=== PATIENT | female | born 1945 | race Caucasian/White ===

== ENCOUNTER 2018-02-11 14:46 | Emergency (ER) | payer MEDICARE, MEDICAID ==
[2018-02-11 15:04] VITALS: BP 145/74
--- NOTE | 2018-02-11 15:20 | UC ---
Skin Complaint HPI - HPI Summary HPI Summary: Found a tick on the right lower side today. Brought the tick in. Didn't feel it yesterday. - History of Current Complaint Chief Complaint: UCSkin Time Seen by Provider: 02/11/18 15:07 Stated Complaint: TICK BITE Hx Obtained From: Patient Hx Last Menstrual Period: post, total hysterectomy Onset/Duration: Sudden Onset, Lasting Days - 1 Timing: Constant Onset Severity: Mild Current Severity: Mild Pain Intensity: 3 Location: Discrete - Right lower side. Character: Swelling, Pain, Redness Aggravating Factor(s): Touch Alleviating Factor(s): Nothing Associated Signs & Symptoms: Positive: Tenderness. Negative: Diaphoresis, Weakness, Fever, Chills, Cough, Wheezing, Chest Pain, Abdominal Pain, Lightheadedness, Syncope, Drainage, Bruising Related History: Insect Bite/Sting - Tick bite by engorged tick - Allergy/Home Medications Allergies/Adverse Reactions: Allergies Allergy/AdvReac Type Severity Reaction Status Date / Time No Known Allergies Allergy Verified 02/11/18 15:05 Review of Systems Skin: Rash - tick bite Is Patient Immunocompromised?: No All Other Systems Reviewed And Are Negative: Yes PMH/Surg Hx/FS Hx/Imm Hx Previously Healthy: No Cardiovascular History: Hypertension Cancer History: Breast Cancer - Surgical History Surgical History: Yes Surgery Procedure, Year, and Place: lt/rt breast lumpectomies;. APPENDECTOMY. HYSTERECTOMY - Family History Known Family History: Positive: Cardiac Disease, Diabetes - Social History Occupation: Retired Lives: With Family - usp boyfriend Alcohol Use: None Substance Use Type: None Smoking Status (MU): Never Smoked Tobacco Physical Exam Triage Information Reviewed: Yes Appearance: Well-Appearing, No Pain Distress, Well-Nourished Vital Signs: Initial Vital Signs Temp 98.4 F 02/11/18 14:59 Pulse 78 02/11/18 14:59 Resp 16 02/11/18 14:59 BP 145/74 02/11/18 14:59 Pulse Ox 97 02/11/18 14:59 Vital Signs Reviewed: Yes Eyes: Positive: Conjunctiva Clear Neck exam: Normal Respiratory Exam: Normal Cardiovascular Exam: Normal Musculoskeletal Exam: Normal Neurological Exam: Normal Psychological Exam: Normal Skin: Positive: Other - tick bite right lower side Course/Dx - Differential Diagnoses - Skin Complaint Differential Diagnoses: Contact Dermatitis, Tick Born Illness - Diagnoses Provider Diagnoses: Tick bite by engorged tick Discharge - Sign-Out/Discharge Documenting (check all that apply): Patient Departure All imaging exams completed and their final reports reviewed: No Studies - Discharge Plan Condition: Stable Disposition: HOME Prescriptions: DOXYcycline CAP(*) [DOXYcycline 100MG CAP(*)] 200 mg PO ONCE #2 cap Patient Education Materials: Tick Bite (ED), Doxycycline (By mouth) Referrals: Kyle Srinivasan MD [Primary Care Provider] - - Billing Disposition and Condition Condition: STABLE Disposition: Home
== END 2018-02-11 15:47 | disposition home or self-care (01) ==
LOC: UCEAST 14:46
DX: S30.861A Insect bite (nonvenomous) of abdominal wall, initial encounter (principal); W57.XXXA Bitten or stung by nonvenomous insect and other nonvenomous arthropods, initial encounter; Y92.9 Unspecified place or not applicable
CPT/HCPCS: 99212; G0463

== ENCOUNTER 2018-10-18 12:32 | Emergency (ER) | payer MEDICARE, MEDICAID ==
[2018-10-18 12:54] VITALS: BP 131/73
--- NOTE | 2018-10-18 13:30 | UC ---
Shortness of Breath HPI - HPI Summary HPI Summary: The last few nights she has had difficulty when she is lying down to sleep. She complains of dry mouth and a discomfort in her throat which makes her breathe funny. She is fine if she gets up but when she tries to lie down it reoccurs - History of Current Complaint Chief Complaint: UCRespiratory Stated Complaint: COUGH WHEEZING FEVER Time Seen by Provider: 10/18/18 13:05 Hx Obtained From: Patient Hx Last Menstrual Period: post, total hysterectomy Onset/Duration: Gradual Onset Timing: Intermittent Episodes Lasting: Current Severity: None Dyspnea At: Rest Aggravating Factors: Recumbent Position Alleviating Factors: Upright Position Associated Signs & Symptoms: Positive: Other - Allergy/Home Medications Allergies/Adverse Reactions: Allergies Allergy/AdvReac Type Severity Reaction Status Date / Time No Known Allergies Allergy Verified 10/18/18 12:55 Home Medications: Home Medications Vitamin B Complex [Super B-50 Complex] 1 tab PO DAILY 10/18/18 [History Confirmed 10/18/18] PMH/Surg Hx/FS Hx/Imm Hx Other Respiratory History: she has metastatic cancer to her lungs. Cancer History: Lung Cancer, Breast Cancer - ? - Surgical History Surgical History: Yes Surgery Procedure, Year, and Place: lt/rt breast lumpectomies;. APPENDECTOMY. HYSTERECTOMY - Family History Known Family History: Positive: Cardiac Disease, Diabetes - Social History Alcohol Use: None Substance Use Type: None Smoking Status (MU): Never Smoked Tobacco Review of Systems All Other Systems Reviewed And Are Negative: Yes Constitutional: Positive: Negative Skin: Positive: Negative ENT: Positive: Negative Respiratory: Positive: Shortness Of Breath Cardiovascular: Positive: Negative Psychological: Positive: Anxious Physical Exam - Summary Physical Exam Summary: She is nontoxic in appearance with stable vital signs. Triage Information Reviewed: Yes Appearance: Well-Appearing Vital Signs: Initial Vital Signs Temp 98.8 F 10/18/18 12:39 Pulse 94 10/18/18 12:39 Resp 18 10/18/18 12:39 BP 131/73 10/18/18 12:39 Pulse Ox 95 10/18/18 12:39 Vital Signs Reviewed: Yes Eyes: Positive: Conjunctiva Clear ENT Exam: Normal Neck: Positive: Supple Respiratory Exam: Normal Cardiovascular Exam: Normal Musculoskeletal: Positive: No Edema Neurological Exam: Normal Diagnostics - Radiology CXR Radiology Interpretation Completed By: Radiologist - Mild CHF Shortness of Breath Dx - Course Course Of Treatment: Ms. Angelo has been having a little bit of problem with her breathing at night for the last 3 weeks. The last 2 nights it's been particularly difficult. She denies any chest pain but feels like she is short of breath and has wheezing. Her exam was unremarkable and a chest x-ray revealed some mild CHF. Because of that I obtained an EKG which shows a left bundle branch block. I have no old EKGs to compare to. I'm not sure how acute this is. I'm uncomfortable just giving her some diuretic and having her follow up with her PCP. I think she may need monitoring and labs to obtain a safe discharge. As she is completely asymptomatic at this time and does not want to take an ambulance I'm going to allow her to drive herself up. - Differential Dx/Diagnosis Provider Diagnosis: CHF (congestive heart failure) Discharge - Sign-Out/Discharge Documenting (check all that apply): Patient Departure All imaging exams completed and their final reports reviewed: Yes - Discharge Plan Condition: Stable Disposition: HOME-RECOMMEND TO ED Patient Education Materials: Heart Failure (ED) Referrals: Kyle Srinivasan MD [Primary Care Provider] - - Billing Disposition and Condition Condition: STABLE Disposition: Home-Recommend to ED
== END 2018-10-18 14:40 | disposition home health service (06) ==
LOC: UCEAST 12:32
DX: I50.9 Heart failure, unspecified (principal); C78.00 Secondary malignant neoplasm of unspecified lung
CPT/HCPCS: 71046; 99212; G0463

== ENCOUNTER 2018-10-18 15:16 | Inpatient (IN) | payer MEDICARE, MEDICAID ==
[2018-10-18 17:56] LABS: ABS Basophils 0.1 10^3/ul (0-0.2); ABS Eosinophils 0.3 10^3/ul (0-0.6); ABS Lymphocytes 2.8 10^3/ul (1.0-4.8); ABS Monocytes 1.3 10^3/ul (0-0.8); ABS Neutrophils 7.6 10^3/ul (1.5-7.7); Eosinophil % 2.6 %; Hematocrit 39 % (35-47); Hemoglobin 13.6 g/dL (12.0-16.0); Lymphocyte % 22.9 %; Mean Corpuscular HGB Conc 35 g/dL (31-36); Mean Corpuscular Hemoglobin 33 pg (27-31); Mean Corpuscular Volume 95 fL (80-97); Mean Platelet Volume 7.8 fL (7.4-10.4); Nucleated Red Blood Cells % 0.1; Platelet Count 245 10^3/uL (150-450); Red Blood Count 4.14 10^6 /uL (3.70-4.87); Red Cell Distribution Width 15 % (10-15); White Blood Count 12.2 10^3/uL (3.5-10.8)
[2018-10-18 18:17] LABS: Troponin I 0.02 ng/mL (<0.04)
[2018-10-18 18:19] LABS: Albumin 4.4 g/dL (3.2-5.2); Albumin/Globulin Ratio 1.4 (1-3); Calcium 9.8 mg/dL (8.6-10.3); EGFR African American 74.1 (>60); EGFR Non-African American 61.2 (>60); Globulin 3.2 g/dL (2-4); Potassium 4.1 mmol/L (3.5-5.0); Total Bilirubin 0.6 mg/dL (0.2-1.0); Total Protein 7.6 g/dL (6.4-8.9)
--- NOTE | 2018-10-18 18:31 | ED ---
Shortness of Breath - HPI Summary HPI Summary: Patient is a 73 y old F presenting to [facility] with chief complaint of SOB and tightness in chest with onset of 2 days. Patient reports episodic wheezing last night and night before and getting 2 hours of sleep in 2 days. Patient reports diaphoresis and fever last night. Patient denies productive cough but reports a small cough in the morning. Wheezing is alleviated by sitting up. Patient reports to have gained 3 pounds in the last month. Hx breast, spinal, liver cancer w radiation treatments. Patient describes previous visit to [facility] where Dr. Powell referred her to ED to get further information on kidney function, CBC, and receive diuretics for treatment. Pt denies any chills, erythema of eyes, sore throat, cough, abdominal pain, N/V, dysuria, hematuria, myalgia, edema, rash, or dizziness. - History of Current Complaint Chief Complaint: EDShortnessOfBreath Time Seen by Provider: 10/18/18 17:27 Hx Obtained From: Patient Onset/Duration: Lasting Days - 2, Still Present Current Severity: Moderate Dyspnea At: Rest Aggravating Factors: Nothing Alleviating Factors: Upright Position Associated Signs & Symptoms: Cough (Productive), Wheezing, Fever, Diaphoresis - Allergy/Home Medications Allergies/Adverse Reactions: Allergies Allergy/AdvReac Type Severity Reaction Status Date / Time No Known Allergies Allergy Verified 10/18/18 12:55 Home Medications: Home Medications Calcium Carbonate [Calcium] 500 mg PO DAILY 10/18/18 [History Confirmed 10/18/18 ] Ibuprofen 800 mg PO Q8H PRN 10/18/18 [History Confirmed 10/18/18] Oxycodone IR 10 MG(NF) 10 mg PO Q6H PRN 10/18/18 [History Confirmed 10/18/18] oxyCODONE SR TAB(*) [Oxycontin 40 mg (*)] 40 mg PO BID PRN 10/18/18 [History Confirmed 10/18/18] PMH/Surg Hx/FS Hx/Imm Hx Endocrine/Hematology History: Denies: Hx Diabetes Cardiovascular History: Reports: Hx Hypertension Denies: Hx Pacemaker/ICD History: Denies: Hx Dialysis, Hx Renal Disease Musculoskeletal History: Reports: Hx Rheumatoid Arthritis, Hx Osteoporosis, Other Musculoskeletal History - Mild lower lumbar osteoarthritis Sensory History: Denies: Hx Hearing Aid Psychiatric History: Denies: Hx Panic Disorder - Cancer History Cancer Type, Location and Year: rt breast. BONE. Liver Hx Radiation Therapy: Yes - Surgical History Surgery Procedure, Year, and Place: lt/rt breast lumpectomies;. APPENDECTOMY. HYSTERECTOMY Infectious Disease History: No Infectious Disease History: Denies: Traveled Outside the [place] in Last 30 Days - Family History Known Family History: Positive: Cardiac Disease, Diabetes - Social History Alcohol Use: None Hx Substance Use: No Substance Use Type: Reports: None Hx Tobacco Use: No Smoking Status (MU): Never Smoked Tobacco Review of Systems Positive: Fever, Skin Diaphoresis. Negative: Chills Negative: Erythema Negative: Sore Throat Positive: Chest Pain Positive: Shortness Of Breath, Other - wheezing. Negative: Cough Negative: Abdominal Pain, Vomiting, Nausea Negative: dysuria, hematuria Negative: Myalgia, Edema Negative: Rash Neurological: Other - (-): dizziness All Other Systems Reviewed And Are Negative: Yes Physical Exam - Summary Physical Exam Summary: Constitutional: Well-developed, Well-nourished, Alert. (-) Distressed Skin: Warm, Dry HENT: Normocephalic; Atraumatic Eyes: Conjunctiva normal Neck: Musculoskeletal ROM normal neck. (-) JVD, (-) Stridor, (-) Tracheal deviation Cardio: Rhythm regular, rate normal, Heart sounds normal; Intact distal pulses; The pedal pulses are 2+ and symmetric. Radial pulses are 2+ and symmetric. (-) Murmur Pulmonary/Chest wall: Bibasilar crackles Abd: Soft, (-) tenderness, (-) Distension, (-) Guarding, (-) Rebound Musculoskeletal: (-) Edema Lymph: (-) Cervical adenopathy Neuro: Alert, Oriented x3 Psych: Anxious Triage Information Reviewed: Yes Vital Signs On Initial Exam: Initial Vitals Temp Pulse Resp BP Pulse Ox 97.8 F 96 18 176/98 95 10/18/18 15:23 10/18/18 15:23 10/18/18 15:23 10/18/18 15:23 10/18/18 15:23 Vital Signs Reviewed: Yes Diagnostics - Vital Signs Vital Signs Temp Pulse Resp BP Pulse Ox 10/18/18 17:51 88 93 10/18/18 15:23 97.8 F 96 18 176/98 95 - Laboratory Lab Results: Lab Results 10/18/18 10/18/18 10/18/18 Range/Units 17:47 17:47 17:47 WBC 12.2 H (3.5-10.8) 10^3/uL RBC 4.14 (3.70-4.87) 10^6 /uL Hgb 13.6 (12.0-16.0) g/dL Hct 39 (35-47) % MCV 95 (80-97) fL MCH 33 H (27-31) pg MCHC 35 (31-36) g/dL RDW 15 (10-15) % Plt Count 245 (150-450) 10^3/uL MPV 7.8 (7.4-10.4) fL Neut % (Auto) 62.6 % Lymph % (Auto) 22.9 % Nye % (Auto) 11.1 % Eos % (Auto) 2.6 % Baso % (Auto) 0.8 % Absolute Neuts (auto) 7.6 (1.5-7.7) 10^3/ul Absolute Lymphs (auto) 2.8 (1.0-4.8) 10^3/ul Absolute Monos (auto) 1.3 H (0-0.8) 10^3/ul Absolute Eos (auto) 0.3 (0-0.6) 10^3/ul Absolute Basos (auto) 0.1 (0-0.2) 10^3/ul Absolute Nucleated RBC 0.0 10^3/ul Nucleated RBC % 0.1 Sodium 137 (135-145) mmol/L Potassium 4.1 (3.5-5.0) mmol/L Chloride 103 (101-111) mmol/L Carbon Dioxide 27 (22-32) mmol/L Anion Gap 7 (2-11) mmol/L BUN 18 (6-24) mg/dL Creatinine 0.90 (0.51-0.95) mg/dL Est GFR ( Amer) 74.1 (>60) Est GFR (Non-Af Amer) 61.2 (>60) BUN/Creatinine Ratio 20.0 (8-20) Glucose 97 (70-100) mg/dL Lactic Acid 1.0 (0.5-2.0) mmol/L Calcium 9.8 (8.6-10.3) mg/dL Total Bilirubin 0.60 (0.2-1.0) mg/dL AST 40 H (13-39) U/L ALT 44 (7-52) U/L Alkaline Phosphatase 105 H (34-104) U/L Troponin I 0.02 (<0.04) ng/mL B-Natriuretic Peptide (<=100) pg/mL Total Protein 7.6 (6.4-8.9) g/dL Albumin 4.4 (3.2-5.2) g/dL Globulin 3.2 (2-4) g/dL Albumin/Globulin Ratio 1.4 (1-3) 10/18/18 Range/Units 17:47 WBC (3.5-10.8) 10^3/uL RBC (3.70-4.87) 10^6 /uL Hgb (12.0-16.0) g/dL Hct (35-47) % MCV (80-97) fL MCH (27-31) pg MCHC (31-36) g/dL RDW (10-15) % Plt Count (150-450) 10^3/uL MPV (7.4-10.4) fL Neut % (Auto) % Lymph % (Auto) % Nye % (Auto) % Eos % (Auto) % Baso % (Auto) % Absolute Neuts (auto) (1.5-7.7) 10^3/ul Absolute Lymphs (auto) (1.0-4.8) 10^3/ul Absolute Monos (auto) (0-0.8) 10^3/ul Absolute Eos (auto) (0-0.6) 10^3/ul Absolute Basos (auto) (0-0.2) 10^3/ul Absolute Nucleated RBC 10^3/ul Nucleated RBC % Sodium (135-145) mmol/L Potassium (3.5-5.0) mmol/L Chloride (101-111) mmol/L Carbon Dioxide (22-32) mmol/L Anion Gap (2-11) mmol/L BUN (6-24) mg/dL Creatinine (0.51-0.95) mg/dL Est GFR ( Amer) (>60) Est GFR (Non-Af Amer) (>60) BUN/Creatinine Ratio (8-20) Glucose (70-100) mg/dL Lactic Acid (0.5-2.0) mmol/L Calcium (8.6-10.3) mg/dL Total Bilirubin (0.2-1.0) mg/dL AST (13-39) U/L ALT (7-52) U/L Alkaline Phosphatase (34-104) U/L Troponin I (<0.04) ng/mL B-Natriuretic Peptide 279 H (<=100) pg/mL Total Protein (6.4-8.9) g/dL Albumin (3.2-5.2) g/dL Globulin (2-4) g/dL Albumin/Globulin Ratio (1-3) Result Diagrams: 10/18/18 17:47 10/18/18 17:47 Lab Statement: Any lab studies that have been ordered have been reviewed, and results considered in the medical decision making process. - EKG 1623 Cardiac Rate: NL - 88 BPM EKG Rhythm: Sinus Rhythm Summary of EKG Findings: LBBB. No STEMI. - Additional Comments Diagnostic Additional Comments: According to radiologist, CTA Chest reveals: 1. No pulmonary emboli. 2. Stable findings of known metastatic breast carcinoma. 3. New small left and tiny right pleural effusions. ED physician has reviewed this report. Re-Evaluation - Re-Evaluation First Eval Re-Evaluation Time: 20:32 Comment: Dr. Gentile, hospitalist, recommends admission. Patient agrees with plan. Course/Dx - Course Course Of Treatment: Patient is a 73 y old F presenting to [facility] with chief complaint of SOB and tightness in chest with onset of 2 days. Patient reports episodic wheezing last night and night before. Patient reports diaphoresis and fever last night. Patient denies productive cough but reports a small cough in the morning. Wheezing is alleviated by sitting up. Hx breast, spinal, liver cancer w radiation treatments. Pt denies any chills, erythema of eyes, sore throat, cough, abdominal pain, N/V, dysuria, hematuria, myalgia, edema, rash, or dizziness. Physical exam reveals bibasilar crackles and anxiety. Blood work shows no abnormalities except for WBC 12.2, MCH 33, Absolute Monos 1.3, AST 40, Alkaline Phosphatase 105, B-Natriuretic Peptide 279. Patient was given furosemide 40 mg, iohexol 70 ml, and nitroglycerin 1 inch in the ED. EKG reveals NSR at 88 BPM with LBBB. Physician discusses admission with Dr. Gentile, hospitalist, who recommends admission. Patient agrees with plan. Patient will be admitted. - Diagnoses Provider Diagnoses: CHF exacerbation - Physician Notifications Discussed Care of Patient With: Baltazar Gentile - hospitalist Time Discussed With Above Provider: 20:32 Instructed by Provider To: Admit As Inpatient - accepted for admission Discharge - Sign-Out/Discharge Documenting (check all that apply): Patient Departure - admit Patient Received Moderate/Deep Sedation with Procedure: No - Discharge Plan Condition: Stable Disposition: ADMITTED TO [facility] - Billing Disposition and Condition Condition: STABLE Disposition: Admitted to [facility] - Attestation Statements Document Initiated by Scribe: Yes Documenting Scribe: Tamra Hanson Provider For Whom Scribe is Documenting (Include Credential): Quintin Oliveros MD Scribe Attestation: Tamra Del Toro, scribed for Quintin Oliveros MD on 10/18/18 at 2350. Status of Scribe Document: Ready
[2018-10-18] MEDS ORDERED: Furosemide IV* 10 MG/ML VIAL (40 MG) IV SLOW PU ONE (19:42)
[2018-10-18] MEDS ORDERED: Nitro 2% OINT* (Nitroglycerin) 1 INCH/PAK PAK TOPICAL ONE (19:53)
[2018-10-18 20:53] LABS: Magnesium 2.4 mg/dL (1.9-2.7)
[2018-10-18] MEDS ORDERED: Acetaminophen TAB* 325 MG PO PRN (20:59)
[2018-10-18 21:11] LABS: TSH (Thyroid Stimulating Horm) 2.38 mcIU/mL (0.34-5.60)
[2018-10-18] MEDS ORDERED: Iohexol 350* (CONTRAST) 500 ML MDV IV ONE (21:37)
[2018-10-18] MEDS: Enoxaparin(*) 40 MG/0.4 ML SYR SUBCUT SCH (23:44)
[2018-10-19] MEDS ORDERED: Morphine INJ* 2 MG/ML 1 ML SYRINGE (TWO MG - NEW SYRINGE VERSION) IV PRN (03:34)
[2018-10-19] MEDS: Diazepam TAB(*) 5 MG PO PRN ×2 (04:24→18:55)
--- NOTE | 2018-10-19 04:48 | HP ---
CC: Dr. Toribio; Dr. Srinivasan * HISTORY AND PHYSICAL: DATE OF ADMISSION: 10/18/18 PROVIDER: Tita Moeller NP. PRIMARY CARE PROVIDER: Dr. Srinivasan. ATTENDING PHYSICIAN WHILE IN THE HOSPITAL: Dr. Baltazar Gentile * (dictated by Tita Moeller NP). CHIEF COMPLAINT: Shortness of breath. HISTORY OF PRESENT ILLNESS: Ms. Angelo is a 73-year-old female with past medical history significant for hypertension, chronic pain, breast cancer, status post lumpectomy and radiation, metastatic breast cancer with mets to the liver, bone, and lungs with radiation to the spine lesion in 2017, who presented to the emergency room with complaints of shortness of breath. She was initially seen at Urgent Care and sent to the emergency room due to left bundle-branch block on the EKG and vascular congestion noted on the chest x-ray. The patient reports that she has had progressively worsening shortness of breath over the past 2 days. She reports that she has been having wheezing when lying down. She denies any chest pain, but does report shortness of breath with chills and feeling diaphoretic. The patient reports that she gets severely short of breath when she will ambulate to her bathroom and back to her bed. She does report a 4-pound weight gain in the past 2 weeks. She also reports that she normally sleeps flat in her bed and has had to sleep up on 2 pillows due to nocturnal dyspnea. She also complains of some tightness in the chest, a feeling in her chest of unable to take a deep breath that is associated with shortness of breath. She also reports no energy and increased fatigue. She denies any fever or edema. Denies any cough or hemoptysis. She denies any nausea or vomiting. She does report 4 episodes of diarrhea. Denies any abdominal pain, hematuria, dysuria, focal weakness, or sensory loss. Denies any visual complaints. Denies any dysphagia, arthralgias, myalgias, rashes, lesions or open sores, psychosis, or anxiety. Due to her shortness of breath and finding of likely congestive heart failure, we were asked to see and evaluate her for admission. PAST MEDICAL HISTORY: Significant for metastatic breast cancer with mets to the liver, bone, and lungs, status post radiation, last radiation treatment 2017 for her spine lesion, hypertension, and chronic pain. PAST SURGICAL HISTORY: She had right breast lumpectomy in 2011, hysterectomy, and appendectomy. HOME MEDICATIONS: The patient reports she has not taken any of her meds in several days. She does report that she does take Tylenol at home, but has not taken this med in 3 to 4 days. She also takes a multivitamin. The patient reports that she takes oxycodone 40 mg p.o. b.i.d. p.r.n., also reports has not taken this medication. She takes Tylenol mg p.o. daily, but has also not taken this medication in several days. ALLERGIES: No known drug allergies. FAMILY HISTORY: Mother with a history of congestive heart failure, at the age of 62, mother with diabetes, no reported history of cancer. SOCIAL HISTORY: The patient reports she smoked for approximately 2 years in her 20s. No other smoking history. Denies any alcohol or illicit drug use. She is retired, but cleans houses. She does live with her significant other. Surrogate decision maker in the event she is unable to make her own decisions is her brother. She is a full code. REVIEW OF SYSTEMS: A 14-point review of systems was completed. All pertinent positives were mentioned in the HPI, otherwise were negative. PHYSICAL EXAMINATION GENERAL: At this time, Ms. Angelo is resting comfortably on the stretcher in the emergency room. She is alert and oriented x3. VITAL SIGNS: Blood pressure 146/87, heart rate 91, respirations 18, O2 saturation 92%, temperature was 97.8. HEENT: Head is atraumatic, normocephalic. Eyes: EOMs are intact. Sclerae anicteric and not pale. Oral mucosa appeared to be moist. NECK: Supple. LUNGS: Clear with diminished breath sounds in the bases bilaterally and a few crackles in the mid lungs are noted. CARDIAC: S1, S2. Regular rate and rhythm. No murmurs, rubs, or gallops. ABDOMEN: Soft and nontender. Bowel sounds are present x4. EXTREMITIES: She is able to move all 4 extremities. No clubbing or cyanosis. She does have mild +1 pitting edema noted to the lower extremities. NEUROLOGIC: She is awake, alert, oriented x3. Speech is clear. Thought process is intact. She has no gross focal deficits. SKIN: Intact. LABORATORY DATA AND DIAGNOSTIC STUDIES: WBCs are 12.2, RBCs 4.14, hemoglobin 13.6, hematocrit is 39, platelet count is 245. Sodium 137, potassium 4.1, chloride was 103, carbon dioxide 27, anion gap 7, BUN was 18, creatinine was 0.90, lactic acid was 1.0, calcium 9.8, magnesium 2.4, total bilirubin 0.60. AST was 40, ALT was 44, alkaline phosphatase was 105, troponin was 0.02 and 0.03. BNP was 279 and TSH was 2.38. She had a chest x-ray at Urgent Care that showed vascular congestion. She had a CTA of the chest in the emergency room, which showed no pulmonary emboli, stable findings of known metastatic breast carcinoma. New small left and tiny right pleural effusions. She had an electrocardiogram done in the emergency room, which showed sinus rhythm and rate of 84 with left bundle-branch block. No ST elevations. ASSESSMENT AND PLAN: Ms. Angelo is a 73-year-old female with a past medical history significant for metastatic breast cancer, hypertension, and chronic pain , who presented to the emergency room with complaints of worsening shortness of breath. She will be admitted in-patient for shortness of breath. 1. Shortness of breath. I suspect her shortness of breath is related to underlying acute congestive heart failure. The patient was given 40 Lasix and nitro in the emergency room. I did get a CTA of the chest that was negative for pulmonary emboli as the patient does have new EKG changes and new left bundle- branch block and was short of breath. There is no evidence of pneumonia within the CTA of the chest as well. Due to the findings of vascular congestion and CTA showing bilateral pleural effusions, the patient did receive 40 mg of Lasix IV in the emergency room. We will reevaluate her volume status in the a.m. and continue dosing Lasix based on volume status. The patient will have strict I and O's. She will have daily weights. I will get a transthoracic echocardiogram to evaluate the patient's heart function in the morning. The patient does have what appears to be a new left bundle-branch block. She denies any chest pain. Her troponins have been negative x3, and she did have a CTA of the chest that was negative for pulmonary embolism. At this time, she has a transthoracic echocardiogram that is currently ordered for tomorrow a.m. Should the patient develop chest pain or any new EKG changes, I would recommend consultation to Cardiology. 2. Metastatic breast cancer. Supportive care at this time. The patient does report she is currently waiting biopsy results from a liver biopsy that was recently done. She is followed by Dr. Toribio for her cancer. 3. Hypertension. The patient reports she does take metoprolol, but has not taken this in several days. I will resume her metoprolol 50 mg p.o. daily. 4. Chronic pain. The patient takes oxycodone at home, but again reports she has not taken this medication in several days. The patient is requesting no narcotics at this time. 5. FEN: She can have a regular diet. 6. Code status: She is a full code. 7. DVT prophylaxis: I will place her on Lovenox subcu. TIME SPENT: Time spent on this admission approximately was 60 minutes, greater than half that time was spent at the bedside reviewing the events leading thus far to her hospitalization, performing physical exam, and reviewing my plan of care. I have discussed this with my attending Dr. Baltazar Gentile, he is in agreement with my plan. TITA MOELLER, CONSUELO [id number]/[facility] #: [id number]
[2018-10-19 06:25] LABS: ABS Basophils 0.1 10^3/ul (0-0.2); ABS Eosinophils 0.2 10^3/ul (0-0.6); ABS Lymphocytes 1.8 10^3/ul (1.0-4.8); ABS Neutrophils 7.2 10^3/ul (1.5-7.7); Eosinophil % 2.2 %; Hematocrit 35 % (35-47); Lymphocyte % 17.8 %; Mean Corpuscular HGB Conc 34 g/dL (31-36); Mean Corpuscular Hemoglobin 32 pg (27-31); Mean Corpuscular Volume 95 fL (80-97); Mean Platelet Volume 7.9 fL (7.4-10.4); Nucleated Red Blood Cells % 0.1; Platelet Count 215 10^3/uL (150-450); Red Blood Count 3.71 10^6 /uL (3.70-4.87); Red Cell Distribution Width 15 % (10-15); White Blood Count 10.3 10^3/uL (3.5-10.8)
[2018-10-19 06:45] LABS: BUN/Creatinine Ratio 22.2 (8-20); Calcium 8.9 mg/dL (8.6-10.3); EGFR African American 83.6 (>60); EGFR Non-African American 69.1 (>60); HDL Cholesterol 42.8 mg/dL; Potassium 3.8 mmol/L (3.5-5.0)
[2018-10-19] MEDS ORDERED: Atenolol TAB* 50 MG PO SCH (09:00)
[2018-10-19] MEDS: Aspirin EC TAB* 81 MG TAB.EC PO SCH (09:47)
--- NOTE | 2018-10-19 12:48 | ECHO ---
*[facility]* [place] [address] Fax #: [phone] Transthoracic Echocardiogram Patient: Bisi Angelo : 1945 Study Date: 10/19/2018 Age: 73 Gender: F HR: 76 bpm Height: 62 in /157.5 cm BSA: 1.8 m^2 Weight: 173.6 lb /78.9 kg BMI: 31.8 kg/m^2 *Shipping Receiving Clerk: * Rossana May [facility] *Referring Physician: * Tita Moeller *Reading Physician: * Arik Villa MD Indications: Abnormal EKG. Congestive Heart Failure. History: The patient has a breast malignancy with metastasis to liver, lungs, and bone tissue. S/P radiotherapy. Risk factors: Hypertension. Conclusions Summary: 1. Left ventricle: The cavity size is at the upper limits of normal. There is mild concentric hypertrophy. Systolic function is moderately to severely reduced. The estimated ejection fraction is 30-35%. There is global hypokinesis. Inferior wall appears worst. Doppler parameters are consistent with abnormal left ventricular relaxation (grade 1 diastolic dysfunction). 2. Normal cardiac chamber sizes. 3. Mitral valve: There is mild regurgitation. 4. Ascending aorta: The ascending aorta is mildly dilated. 5. There is no prior echocardiogram available to compare with at this time. Study data: Transthoracic echocardiogram. Procedure: Transthoracic echocardiography was performed. Image quality was fair. Complete 2D, spectral Doppler, and color flow Doppler. Location: Bedside. Patient status: Inpatient. Patient room number: 442-2. Rhythm: Normal sinus rhythm with PAC's. Findings Left ventricle: The cavity size is at the upper limits of normal. There is mild concentric hypertrophy. Systolic function is moderately to severely reduced. The estimated ejection fraction is 30-35%. Regional wall motion abnormalities: There is global hypokinesis. Inferior wall appears worst. Doppler parameters are consistent with abnormal left ventricular relaxation (grade 1 diastolic dysfunction). Right ventricle: The cavity size is normal. The moderator band is in a normal position. Systolic function is normal. The tricuspid jet envelope definition is inadequate for estimation of RV systolic pressure. There are no indirect findings (abnormal RV volume or geometry, altered pulmonary flow velocity profile, or leftward septal displacement) which would suggest moderate or severe pulmonary hypertension. Left atrium: The atrium is normal in size. Right atrium: The atrium is normal in size. Mitral valve: The leaflets are mildly thickened. There is mild regurgitation. Aortic valve: The valve leaflets were not well visualized. The leaflets are mildly thickened. There is no evidence of stenosis. There is no significant regurgitation. Tricuspid valve: The leaflets are normal thickness. There is physiologic regurgitation. Pulmonic valve: The leaflets are normal thickness. There is no evidence of stenosis. There is no regurgitation. Aorta: Ascending aorta: The ascending aorta is mildly dilated. Aortic arch: The aortic arch is appears normal. The aortic root is not dilated. Pericardium: A prominent pericardial fat pad is present. There is no pericardial effusion. Pulmonary arteries: Not well visualized. Systolic pressure can not be accurately estimated. Systemic veins: Inferior vena cava: The vessel is normal in size. The respirophasic diameter changes are in the normal range (>= 50%). Measurements Left ventricle Value Ref Right atrium continued Value Ref KARELY, LAX 5.2 cm 3.8 - 5.2 SI dim, ES, A4C 4.5 cm 3.4 - 5.3 ESD, LAX (H) 4.2 cm 2.2 - 3.5 Estimated RAP 3 mm Hg --------- FS, LAX (L) 19 % 27 - 45 PW, ED, LAX (H) 1.2 cm 0.6 - 0.9 Aortic valve Value Ref FS (L) 19 % 27 - 45 Melanie diam, ED 1.9 cm --------- PW, ED (H) 1.2 cm 0.6 - 0.9 Peak v, S 1.46 m/sec --------- E', lat melanie, TDI (L) 6.2 cm/sec >=10.0 VTI, S 28.6 cm -- ------- E/e', lat melanie, 9 Mean grad, S 5.0 mm Hg ----- ---- TDI Peak grad, S 9.0 mm Hg --------- E', med melanie, TDI (L) 4.4 cm/sec >=7.0 LVOT/AV, VTI ratio 0.56 -- ------- E/e', med melanie, 13 TDI Mitral valve Value Ref E', avg, TDI 5.3 cm/sec Peak E 0.56 m/sec ----- ---- E/e', avg, TDI 11 <=14 Peak A 1.01 m/sec -- ------- Decel time 187 ms --------- LVOT Value Ref Peak E/A ratio 0.6 --------- Peak tonya, S 0.7 m/sec VTI, S 16.0 cm Pulmonic valve Value Ref Mean grad, S 1 mm Hg Peak v, S 0.77 m/sec --------- Peak grad, S 2.0 mm Hg --------- Ventricular septum Value Ref IVS, ED (H) 1.2 cm 0.6 - 0.9 Aortic root Value Ref Root diam 3.2 cm <4.0 Right ventricle Value Ref KARELY, LAX 2.5 cm Ascending aorta Value Ref KARELY minor ax, (H) 4.2 cm 1.9 - 3.5 AAo AP diam, S 3.6 cm --------- A4C mid Aortic arch Value Ref Left atrium Value Ref Arch diam 2.3 cm --------- AP dim, ES 3.20 cm 2.70 - 3.80 Decending aorta Value Ref ML dim, A4C 4.0 cm Osman peak tonya 0.64 m/sec --------- SI dim, A4C 4.7 cm Vol/bsa, ES, 1-p 16 ml/m^2 11 - 40 Inferior vena cava Value Ref A4C Diam 1.9 cm --------- Vol/bsa, ES, A/L 28 ml/m^2 16 - 34 Right atrium Value Ref SI dim, ES 4.5 cm 3.4 - 5.3 ML dim, ES, A4C 4.0 cm 2.6 - 4.4 Legend: (L) and (H) malgorzata values outside specified reference range. Prepared and electronically signed by Arik Villa MD 10/19/2018 12:47
--- NOTE | 2018-10-19 15:30 | CONS ---
CC: Dr. Kyle Srinivasan CARDIOLOGY CONSULTATION: DATE OF CONSULT: 10/19/18 REFERRING PHYSICIAN: Ms. Cassandra Vasquez REASON FOR CARDIOLOGY CONSULTATION: Shortness of breath and newly found cardiomyopathy. HISTORY OF PRESENT ILLNESS: I was kindly asked to see Ms. Angelo by Ms. Vasquez for cardiology consultation. The patient states that for the past week or so she has been having fatigue, and for the last several nights, she has been feeling quite short of breath as well as having nocturnal wheezing when she would lie flat. She does not have any chest pain, but does note some vague chest discomfort as well as her heart racing at times. When she came to the [facility] Emergency Room yesterday, she was found to have congestive heart failure and with diuresis is feeling better. The patient does note that she drinks quite a bit of fluid at home because she is "always thirsty with a dry mouth" as well as she eats food containing salt. PAST MEDICAL HISTORY: Significant for breast cancer originally diagnosed in 2010 of her right breast. She apparently underwent lumpectomy at that time. She did not have regular followup with her oncologist despite being advised to take some chemotherapy, so apparently her cancer had metastasized to her spine which was treated with XRT and there is now a lesion being followed in her liver. She also has a history of hypertension and chronic pain. PAST SURGICAL HISTORY: Includes right breast lumpectomy in 2010, hysterectomy, appendectomy. OUTPATIENT MEDICATIONS: Include oxycodone p.r.n. ALLERGIES TO MEDICATIONS: None. She denies shrimp, seafood, or dye allergy. FAMILY HISTORY: Her mother at the age of 62 from congestive heart failure and diabetes. There is no family history of stroke, no cancer. SOCIAL HISTORY: She does not smoke cigarettes, abuse alcohol, no use of illicit drugs. She has been living with her common-law for 30 years. 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 She is a high school graduate. She does try to stay active including cleaning her house and cleaning up of her "four cats." She does not drink caffeine. REVIEW OF SYSTEMS: She denies personal history of stroke. Cancer as above. She denies vomiting blood, coughing up blood, bright red blood per rectum, bleeding stomach ulcers, renal calculi, chololithiasis, asthma, emphysema, pneumonia, tuberculosis, sleep apnea, home oxygen use, diabetes. She has a history of hypertension. Denies prior CA, congestive heart failure, cardiac surgery. Palpitations as above. Denies heart murmur. She has a history of anxiety and depression. She denies lupus, psoriasis, seizures, Parkinson's disease, myasthenia gravis, thyroid disorders, liver failure, kidney disorders, claudication symptoms, pulmonary emboli, deep venous thrombosis, or peripheral arterial disease, peripheral edema. She does note occasional indigestion. The patient had a chest thorax CTA on admission yesterday, which did not show any pulmonary emboli, which reported stable findings of known metastatic breast cancer. All other ROS negative times 14 except as above. PHYSICAL EXAM: Height 5 feet 8 inches, weight 116 pounds, pulse is 106, blood pressure 116/73, O2 saturation 98%. On general exam, she is a frail, elderly lady, who does not appear to be oriented and is in mild respiratory distress. HEENT shows the cranium is normocephalic and atraumatic. She has dry mucosal membranes. Neck veins are distended, JVP 9 cm. There are no carotid bruits. Visible skin warm and perfused. Affect, she appears confused. Lungs reveal rales at the bases. Cardiac Exam: S1, S2. Irregular rate. Soft holosystolic murmur heard without radiation. There is no rub no gallop. PMI is nondisplaced. Abdomen: Soft and nondistended, appears benign. Extremities with 1+ peripheral edema and pulses appear grossly intact. DIAGNOSTIC STUDIES/LAB DATA: Sodium 133, potassium 3.8, chloride 96, bicarbonate 27, BUN 18, creatinine 0.81 and that is after diuresis. Magnesium 2.4. Admission TSH 2.38. LDL 92. Total cholesterol 157, AST 40, ALT 44, alk phos 105, troponin 0.02 followed by 0.03 followed by 0.03. White blood cell count 10.3, hematocrit 35, platelet count 215. A 12-lead EKG, 10/19/18, at 0701, normal sinus rhythm with left bundle-branch block, 1 PVC. No prior 12-lead EKG available to compare with it at this time. 10/19/18 Echo (see also full report): moderate to severely depressed LVEF 30-35% , mild MR, mildly dilated ascending aorta. NPE available. IMPRESSION: Ms. Angelo is a pleasant 73-year-old lady with a history of metastatic breast cancer, hypertension, excessive fluid and salt ingestion, admitted with volume overload and she is found to have new cardiomyopathy with left bundle-branch block of uncertain timing. I have discussed this in detail with the patient. I am making the following recommendations with which she is in agreement. RECOMMENDATIONS: 1. Recommend dietary sodium avoidance and fluid restriction to less than 1.5 L per day. 2. Change atenolol to Toprol-XL 50 mg once a day for her systolic congestive heart failure as well as start Altace 5 mg once a day and Lasix 40 mg po qday ( as an outpatient after further IV diuresis here) with serum electrolytes in 1 week. I will consider adding Aldactone as an outpatient. 3. Follow up with her PCP post discharge. 4. The patient should follow up with myself in 3 to 4 weeks and at that time I will make arrangements for an outpatient cardiac chemical nuclear rest/stress scan for ischemic evaluation with chemical vasodilatation appropriate given her left bundle-branch block. Other management as per the hospitalist and oncology service.I have discussed the case with Ms. Vasquez. Dear Ms. Vasquez, many thanks for this kind cardiac consultation opportunity. Please do not hesitate to contact me if you have any questions or concerns regarding the patient's cardiovascular consultative care. [id number]/CPS #: [id number] MTDD
--- NOTE | 2018-10-19 17:18 | PN ---
Subjective Date of Service: 10/19/18 Interval History: Patient sitting in bed on assessment. Reports improvement in sob and "wheeze". Denies chest pain, palpitations, nausea, vomiting, diarrhea. Objective Active Medications: Acetaminophen (Tylenol Tab*) 650 mg PO Q4H PRN PRN Reason: FEVER/PAIN Last Admin: 10/19/18 03:20 Dose: 650 mg Aspirin (Aspirin Ec Tab*) 81 mg PO DAILY [facility] Last Admin: 10/19/18 09:47 Dose: 81 mg Diazepam (Valium Tab(*)) 2.5 mg PO Q8H PRN PRN Reason: ANXIETY Last Admin: 10/19/18 04:24 Dose: 2.5 mg Enoxaparin Sodium (Lovenox(*)) 40 mg SUBCUT Q24H [facility] Last Admin: 10/18/18 23:44 Dose: 40 mg Metoprolol Succinate (Toprol Xl Tab*) 50 mg PO DAILY [facility] Morphine Sulfate (Morphine Inj (Syringe))*) 2 mg IV Q4H PRN PRN Reason: PAIN - CHEST Ramipril (Altace Cap*) 5 mg PO DAILY [facility] Oxygen Devices in Use Now: None Appearance: Comfortable, NAD Eyes: No Scleral Icterus Ears/Nose/Mouth/Throat: Clear Oropharnyx, Mucous Membranes Moist Neck: NL Appearance and Movements; NL JVP Respiratory: Symmetrical Chest Expansion and Respiratory Effort, - - Scant rales at bases Cardiovascular: NL Sounds; No Murmurs; No JVD, - - Mild edema Abdominal: NL Sounds; No Tenderness; No Distention Lymphatic: No Cervical Adenopathy Extremities: No Clubbing, Cyanosis Skin: No Rash or Ulcers Neurological: Alert and Oriented x 3 Nutrition: Taking PO's Result Diagrams: 10/19/18 06:00 10/19/18 06:00 Additional Lab and Data: Laboratory Results - last 24 hr 10/18/18 10/18/18 10/18/18 17:47 17:47 17:47 WBC 12.2 H RBC 4.14 Hgb 13.6 Hct 39 MCV 95 MCH 33 H MCHC 35 RDW 15 Plt Count 245 MPV 7.8 Neut % (Auto) 62.6 Lymph % (Auto) 22.9 Becker % (Auto) 11.1 Eos % (Auto) 2.6 Baso % (Auto) 0.8 Absolute Neuts (auto) 7.6 Absolute Lymphs (auto) 2.8 Absolute Monos (auto) 1.3 H Absolute Eos (auto) 0.3 Absolute Basos (auto) 0.1 Absolute Nucleated RBC 0.0 Nucleated RBC % 0.1 Sodium 137 Potassium 4.1 Chloride 103 Carbon Dioxide 27 Anion Gap 7 BUN 18 Creatinine 0.90 Est GFR ( Amer) 74.1 Est GFR (Non-Af Amer) 61.2 BUN/Creatinine Ratio 20.0 Glucose 97 Lactic Acid 1.0 Calcium 9.8 Magnesium 2.4 Total Bilirubin 0.60 AST 40 H ALT 44 Alkaline Phosphatase 105 H Troponin I 0.02 B-Natriuretic Peptide Total Protein 7.6 Albumin 4.4 Globulin 3.2 Albumin/Globulin Ratio 1.4 Triglycerides Cholesterol LDL Cholesterol HDL Cholesterol TSH 2.38 10/18/18 10/18/18 10/19/18 17:47 21:22 00:44 WBC RBC Hgb Hct MCV MCH MCHC RDW Plt Count MPV Neut % (Auto) Lymph % (Auto) Becker % (Auto) Eos % (Auto) Baso % (Auto) Absolute Neuts (auto) Absolute Lymphs (auto) Absolute Monos (auto) Absolute Eos (auto) Absolute Basos (auto) Absolute Nucleated RBC Nucleated RBC % Sodium Potassium Chloride Carbon Dioxide Anion Gap BUN Creatinine Est GFR ( Amer) Est GFR (Non-Af Amer) BUN/Creatinine Ratio Glucose Lactic Acid Calcium Magnesium Total Bilirubin AST ALT Alkaline Phosphatase Troponin I 0.03 0.03 B-Natriuretic Peptide 279 H Total Protein Albumin Globulin Albumin/Globulin Ratio Triglycerides Cholesterol LDL Cholesterol HDL Cholesterol TSH 10/19/18 10/19/18 06:00 06:00 WBC 10.3 RBC 3.71 Hgb 12.0 Hct 35 MCV 95 MCH 32 H MCHC 34 RDW 15 Plt Count 215 MPV 7.9 Neut % (Auto) 69.6 Lymph % (Auto) 17.8 Becker % (Auto) 9.8 Eos % (Auto) 2.2 Baso % (Auto) 0.6 Absolute Neuts (auto) 7.2 Absolute Lymphs (auto) 1.8 Absolute Monos (auto) 1.0 H Absolute Eos (auto) 0.2 Absolute Basos (auto) 0.1 Absolute Nucleated RBC 0.0 Nucleated RBC % 0.1 Sodium 133 L Potassium 3.8 Chloride 96 L Carbon Dioxide 27 Anion Gap 10 BUN 18 Creatinine 0.81 Est GFR ( Amer) 83.6 Est GFR (Non-Af Amer) 69.1 BUN/Creatinine Ratio 22.2 H Glucose 236 H Lactic Acid Calcium 8.9 Magnesium Total Bilirubin AST ALT Alkaline Phosphatase Troponin I B-Natriuretic Peptide Total Protein Albumin Globulin Albumin/Globulin Ratio Triglycerides 113 Cholesterol 157 LDL Cholesterol 92 HDL Cholesterol 42.8 TSH Microbiology and Other Data: . Assess/Plan/Problems-Billing Assessment: 73 yr old female with pmh of metastatic breast ca, htn, chronic pain; who presented to ED with sob - Patient Problems (1) Shortness of breath Comment: - Cardiomyopathy and LBBB - Echo completed and revealed moderate to severly depressed EF 30% to 35%, mild MR, mildly dilated ascending aorta. - Dr Villa consulting and we appreciate his assistance. Per his recommendations I have changed patient Atenolol to Tropol XL and added Altace. Lasix PO to be started prior to discharge and patient to have repeat BMP in one week. Patient will also follow up with Dr Villa as an outpatient in 3 to 4 weeks for stress test - Cont IV diuresis while inpatient (2) Wheeze Comment: - Patient reports prior to presentation to ED she had wheeze when lying flat - Patient reports wheezing has improved. - No wheezing heard on exam (3) Hypertension Comment: - Atenolol changed to Tropol XL and Altace initiated as mentioned above - Monitor BP (4) Metastasis from breast cancer Comment: - Patient of Dr Toribio - Oncology aware of patient, but we will be managing patient given cardiac findings (5) Chronic pain Comment: - Patient prescribed oxycodone at home for pain, but was held on admission as she reported she had not taken this medication for several days - If patient reports pain it is reasonable to restart this. (6) DVT prophylaxis Comment: - Lovenox Attending: Tasia García
[2018-10-19] MEDS ORDERED: Furosemide IV* 10 MG/ML 2 ML VIAL (20 MG) IV ONE (19:24)
[2018-10-19] MEDS: Enoxaparin(*) 40 MG/0.4 ML SYR SUBCUT SCH (23:30)
[2018-10-20 06:29] LABS: BUN/Creatinine Ratio 23.8 (8-20); EGFR African American 84.8 (>60); EGFR Non-African American 70.1 (>60); Potassium 4.3 mmol/L (3.5-5.0)
[2018-10-20] MEDS ORDERED: Furosemide IV* 10 MG/ML 2 ML VIAL (20 MG) IV ONE (09:09)
[2018-10-20] MEDS: Ramipril CAP* 5 MG PO SCH (09:13)
[2018-10-20] MEDS: Metoprolol Succinate XL TAB* 50 MG PO SCH (09:13)
[2018-10-20] MEDS: Aspirin EC TAB* 81 MG TAB.EC PO SCH (09:13)
--- NOTE | 2018-10-20 14:52 | PN ---
Subjective Date of Service: 10/20/18 Interval History: Ms. Angelo is feeling better today. Her SOB has improved, but still SOB to some extent. She feels very fatigued. Concerned about having a "wheeze" and cough. Denies CP, N/V. Good appetite. Up ambulating in the hallways. No concerns from nursing. Family History: Unchanged from Admission Social History: Unchanged from Admission Past Medical History: Unchanged from Admission Objective Active Medications: Acetaminophen (Tylenol Tab*) 650 mg PO Q4H PRN FEVER/PAIN Aspirin (Aspirin Ec Tab*) 81 mg PO DAILY [facility] Diazepam (Valium Tab(*)) 2.5 mg PO Q8H PRN ANXIETY Enoxaparin Sodium (Lovenox(*)) 40 mg SUBCUT Q24H [facility] Metoprolol Succinate (Toprol Xl Tab*) 50 mg PO DAILY [facility] Morphine Sulfate (Morphine Inj (Syringe))*) 2 mg IV Q4H PRN PAIN - CHEST Ramipril (Altace Cap*) 5 mg PO DAILY [facility] Vital Signs - 8 hr 10/20/18 10/20/18 10/20/18 07:58 08:00 11:14 Temperature 98.5 F 97.9 F Pulse Rate 78 69 Respiratory 16 16 20 Rate Blood Pressure 117/62 99/56 (mmHg) O2 Sat by Pulse 94 95 Oximetry Oxygen Devices in Use Now: None Appearance: Elderly female sitting in bed in NAD Eyes: No Scleral Icterus Ears/Nose/Mouth/Throat: Mucous Membranes Moist Neck: NL Appearance and Movements; NL JVP, Trachea Midline Respiratory: Symmetrical Chest Expansion and Respiratory Effort, - - Crackles to bilat bases, otherwise clear Cardiovascular: NL Sounds; No Murmurs; No JVD, RRR Abdominal: NL Sounds; No Tenderness; No Distention Extremities: No Edema Neurological: Alert and Oriented x 3 Lines/Tubes/Other Access: Clean, Dry and Intact Peripheral IV Nutrition: Taking PO's Result Diagrams: 10/19/18 06:00 10/20/18 05:51 Assess/Plan/Problems-Billing Assessment: Ms. Angelo is a 73 yo F with PMH of metastatic breast cancer, HTN, and chronic pain; who presented to ED with c/o SOB and was found to have acute congestive heart failure. - Patient Problems (1) Acute systolic congestive heart failure Code(s): I50.21 - ACUTE SYSTOLIC (CONGESTIVE) HEART FAILURE Comment: - Cardiomyopathy with new LBBB - Echo revealed EF 30% to 35%, mild MR, mildly dilated ascending aorta - Appreciate Caridology consult; recommends Toprol XL, Altace, diuresis, and outpatient follow up - Daily weights and strict I&O - Fluid restriction and low sodium diet - Continue metoprolol, ramipril, furosemide (2) Hypertension Code(s): I10 - ESSENTIAL (PRIMARY) HYPERTENSION Comment: - Normotensive, SBP 110s - Continue metoprolol, ramipril (3) Metastasis from breast cancer Code(s): C79.9 - SECONDARY MALIGNANT NEOPLASM OF UNSPECIFIED SITE; C50.919 - MALIGNANT NEOPLASM OF UNSP SITE OF UNSPECIFIED FEMALE BREAST Comment: - Follows with Dr. Toribio who is aware of this hospitalization (4) Chronic pain Code(s): G89.29 - OTHER CHRONIC PAIN Comment: - Prescribed oxycodone at home, but was held on admission as she reported she had not taken this medication for several days (5) DVT prophylaxis Code(s): Z29.9 - ENCOUNTER FOR PROPHYLACTIC MEASURES, UNSPECIFIED Comment: - Lovenox (6) Full code status Code(s): Z78.9 - OTHER SPECIFIED HEALTH STATUS Comment: Status and Disposition: Inpatient. Anticipate d/c home when medically stable, hopefully tomorrow. Attending: Tasia García
[2018-10-20] MEDS: Diazepam TAB(*) 5 MG PO PRN (21:26)
[2018-10-20] MEDS: Enoxaparin(*) 40 MG/0.4 ML SYR SUBCUT SCH (22:36)
[2018-10-21 06:01] LABS: BUN/Creatinine Ratio 28.6 (8-20); Calcium 8.7 mg/dL (8.6-10.3); EGFR African American 80.2 (>60); EGFR Non-African American 66.3 (>60); Magnesium 2.3 mg/dL (1.9-2.7); Potassium 4.1 mmol/L (3.5-5.0)
[2018-10-21] MEDS: Aspirin EC TAB* 81 MG TAB.EC PO SCH (08:28)
[2018-10-21] MEDS: Ramipril CAP* 5 MG PO SCH (08:28)
[2018-10-21] MEDS: Metoprolol Succinate XL TAB* 50 MG PO SCH (08:28)
[2018-10-21 11:26] VITALS: BP 93/51
--- NOTE | 2018-10-21 22:21 | DS ---
CC: Dr. Kyle Srinivasan; Dr. Arik Villa * DISCHARGE SUMMARY: DATE OF ADMISSION: 10/19/18 DATE OF DISCHARGE: 10/21/18 PRIMARY CARE PROVIDER: Kyle Srinivasan MD ATTENDING PHYSICIAN: Kendell Grimes MD * (dictated by Judit Griffin NP) PRIMARY DIAGNOSIS: Acute systolic congestive heart failure. SECONDARY DIAGNOSES: 1. Hypertension. 2. Breast cancer with metastasis. 3. Chronic pain. STUDIES WHILE IN THE HOSPITAL: 1. EKG on 10/18/18 shows normal sinus rhythm with a rate of 88, left bundle- branch block, QTc 521. 2. Chest thorax CTA on 10/18/18 reads as no pulmonary emboli. There were findings of known metastatic breast carcinoma. New small left and tiny right pleural effusion. 3. Transthoracic echocardiogram on 10/19/18 reads as the left ventricular cavity size is at the upper limits of normal. There is mild left ventricular concentric hypertrophy. Systolic function is [id number] reduced. The estimated ejection fraction is 30% to 35%. There is global hypokinesis. Inferior wall appears worse. Doppler parameters are consistent with abnormal left ventricular relaxation (grade 1 diastolic dysfunction). Normal cardiac chamber sizes. There is mild mitral regurgitation. The ascending aorta is mildly dilated. There is no prior echocardiogram to compare with at this time. 4. EKG on 10/19/18 shows normal sinus rhythm with a rate of 83, left bundle branch block, QTc 545. HISTORY OF PRESENT ILLNESS AND HOSPITAL COURSE: Ms. Angelo is a 73-year-old female with past medical history of metastatic breast cancer, hypertension, and chronic pain who presented to the emergency room on 10/18/18 with complaints of shortness of breath. Please see the history and physical by Tita Moeller NP for complete summary of the events leading up to this hospitalization. In short, the patient presented to urgent care with shortness of breath where she was noted to have a left bundle-branch block and vascular congestion on chest x- ray and so was sent to the emergency room. The patient did note that shortness of breath was worsening over the last few days and worse when lying down. She did report a 4- pound weight gain in the last 2 weeks and generalized fatigue. The patient had imaging as noted above. BNP was noted to be minimally elevated at 279. Labs were otherwise essentially benign except for a very mild leukocytosis with a white blood count of 12.2. Vitals were noted to be stable. There was concern for heart failure and so the patient was admitted by the hospitalist service. The patient was given Lasix in the emergency room. She did have further imaging as noted above and echo did correlate with her symptoms. The patient was seen in consultation by Dr. Villa from Cardiology on 10/19/18, at which point he noted that the patient had new cardiomyopathy with a left bundle- branch block of uncertain timing. He recommended dietary sodium restriction and fluid restriction to less than 1.5 L per day. He recommended changing atenolol to metoprolol, starting ramipril and Lasix. The patient was continued to be diuresed with IV Lasix with improvement in symptoms. As of today, the patient reports feeling better. She denies any shortness of breath and is feeling a bit less fatigued. I will note that she is very anxious about her diagnoses and requires a significant amount of reassurance, though is agreeable to going home today. PHYSICAL EXAMINATION: On exam, she has no focal neurological deficits. Her heart has a regular rate and rhythm without murmurs, rubs, or gallops. Lungs are clear to auscultation without rhonchi, wheezes, or rubs. She is saturating well on room air and has been up ambulating in the hallways. Ms. Angelo is stable for discharge today. Vital signs are as follows, temp 97.9 , heart rate 65, respiratory rate 16, oxygen saturation 93% on room air, blood pressure 93/51. DISCHARGE MEDICATIONS: New medications: 1. Aspirin 81 mg p.o. daily. 2. Furosemide 40 mg p.o. daily. 3. Metoprolol succinate 50 mg p.o. daily. 4. Ramipril 5 mg p.o. daily. Continued medications: 1. Calcium carbonate 500 mg p.o. daily. 2. Cholecalciferol 1000 units p.o. daily. 3. Vitamin B12 5000 mcg p.o. daily. 4. Magnesium oxide 500 mg p.o. daily. 5. Oxycodone IR 10 mg p.o. q.6 hours p.r.n. pain. 6. Oxycodone SR 40 mg p.o. b.i.d. p.r.n. pain. 7. Vitamin B complex 1 tab p.o. daily. Discontinued medications: 1. Ibuprofen. 2. Atenolol. DISCHARGE PLAN: Ms. Angelo will be discharged home. Activity will be as tolerated. Diet will be low sodium with a 1500 mL per day fluid restriction per cardiology recommendations. Medications are noted above. The patient has been placed on metoprolol, furosemide, and ramipril under the recommendations from Cardiology. She can stop taking her atenolol as this is being replaced by the metoprolol. I ensured at this point stop taking ibuprofen due to its negative cardiogenic effect. I have ordered a repeat BMP for 1 week from today to recheck electrolytes per cardiology recommendations. She will need to follow up with her primary care provider in 4 to 7 days. She has been provided teaching heart failure and signs and symptoms to watch for including weight gain , shortness of breath, and edema. She will need to follow up with Dr. Villa in the next 3 to 4 weeks and at that time he plans to arrange for an outpatient stress test due to her new bundle- branch block. The patient has been advised to return to the emergency room or nearest hospital for any worsening of symptoms, shortness of breath, lightheadedness, dizziness, chest discomfort, high fevers, chills, night sweats, loss of consciousness, or new worrisome signs or symptoms. DISCHARGE CONDITION: Stable. DISCHARGE DISPOSITION: Home. This is a summarized report of a complex medical history and hospital stay. For further details, please see the entire medical record. TIME SPENT: Approximately 55 minutes were spent on this discharge. JUDIT GRIFFIN NP [id number]/[facility] #: [id number]
== END 2018-10-21 14:10 | disposition home or self-care (01) | DRG 291 ==
LOC: ED 15:16 → MEDTELE 20:59
PROVIDERS: ADMIT Internal Medicine; ATTEND Internal Medicine
DX: I11.0 Hypertensive heart disease with heart failure (principal); I50.21 Acute systolic (congestive) heart failure; C78.7 Secondary malignant neoplasm of liver and intrahepatic bile duct; C78.02 Secondary malignant neoplasm of left lung; C78.01 Secondary malignant neoplasm of right lung; C79.51 Secondary malignant neoplasm of bone; C50.911 Malignant neoplasm of unspecified site of right female breast; I44.7 Left bundle-branch block, unspecified; I42.9 Cardiomyopathy, unspecified; G89.29 Other chronic pain; Z92.3 Personal history of irradiation; Z79.1 Long term (current) use of non-steroidal anti-inflammatories (NSAID); Z79.891 Long term (current) use of opiate analgesic; Z79.899 Other long term (current) drug therapy; Z82.49 Family history of ischemic heart disease and other diseases of the circulatory system; Z83.3 Family history of diabetes mellitus; Z87.891 Personal history of nicotine dependence
CPT/HCPCS: 36415; 71275; 80048; 80053; 80061; 83605; 83735; 83880; 84443; 84484; 85025; 87040; 93005; 93306; 99284; A9270-GY; J1650; J1940; Q9967